=== PATIENT | male | born 1995 | race Caucasian/White ===

== ENCOUNTER 2024-08-10 16:30 | Emergency (ER) | payer OTHER ==
[~2024-08-10] VITALS: Ht 167.6 cm; Wt 63.5 kg
[2024-08-10] MEDS ORDERED: ONDA4TAB5 PO (17:25)
[2024-08-10] MEDS: ONDANSETRON 4 MG TAB.RAPDIS SL ONE (17:29)
[2024-08-10] MEDS ORDERED: ONDANSETRON 4 MG TAB.RAPDIS ONE (17:29)
[2024-08-10 18:31] VITALS: BP 115/81; TEMP 98.4; O2SAT 97
== END 2024-08-10 18:35 | disposition home or self-care (01) ==
LOC: ER 16:30
DX: S00.83XA Contusion of other part of head, initial encounter (principal); R11.0 Nausea; F17.200 Nicotine dependence, unspecified, uncomplicated; W22.09XA Striking against other stationary object, initial encounter; Y93.01 Activity, walking, marching and hiking; Y92.89 Other specified places as the place of occurrence of the external cause; Y99.8 Other external cause status
CPT/HCPCS: 99284; 70450; Q0162

== ENCOUNTER 2024-08-16 07:44 | Emergency (ER) | payer OTHER ==
[~2024-08-16] VITALS: Ht 167.6 cm; Wt 63.5 kg
[~2024-08-16 07:44] MED LIST: ONDA4TAB5 PO
[2024-08-16 07:45] VITALS: BP 133/80; TEMP 98.3; O2SAT 99
== END 2024-08-16 08:02 | disposition home or self-care (01) ==
LOC: ER 07:49
DX: S09.8XXA Other specified injuries of head, initial encounter (principal); X58.XXXA Exposure to other specified factors, initial encounter; Y93.89 Activity, other specified; Y92.89 Other specified places as the place of occurrence of the external cause; Y99.8 Other external cause status